=== PATIENT | male | born 1980 | race Caucasian/White ===

== ENCOUNTER 2020-04-02 04:39 | Emergency (ER) | payer SELFPAY ==
[~2020-04-02] VITALS: Ht 172.7 cm; Wt 68.0 kg
[2020-04-02 04:45] VITALS: BP 138/90
--- NOTE | 2020-04-02 04:45 | NUR ---
TO [facility]
--- NOTE | 2020-04-02 05:50 | NUR ---
SEEN AND EXAMINED BY JLUIS WITH ORDER , CARRIED OUT
--- NOTE | 2020-04-02 06:00 | NUR ---
SWAB DONE AND SENT TO LAB
[2020-04-02 07:29] VITALS: BP 138/90
--- NOTE | 2020-04-02 07:30 | NUR ---
Patient discharged with v/s stable. Written and verbal after care instructions given and explained. Patient alert, oriented and verbalized understanding of instructions. Ambulatory with steady gait. All questions addressed prior to discharge. ID band removed. Patient advised to follow up with PMD. Rx of zofran 8mg, motrin 600mmg, andnorco 5mg-325mg given. Patient educated on indication of medication including possible reaction and side effects. Opportunity to ask questions provided and answered.
== END 2020-04-02 07:30 | disposition home or self-care (01) ==
LOC: MED 04:39
DX: R10.9 Unspecified abdominal pain (principal); Z20.828 Contact with and (suspected) exposure to other viral communicable diseases; R06.02 Shortness of breath; R05 Cough; E11.9 Type 2 diabetes mellitus without complications
CPT/HCPCS: 99283; U0003